=== PATIENT | female | born 1990 | race Caucasian/White ===

== ENCOUNTER 2019-10-18 18:29 | Emergency (ER) | payer SELFPAY ==
[~2019-10-18] VITALS: Ht 167.6 cm; Wt 81.8 kg
[2019-10-18 22:23] LABS: BASO # 0.1 (0.0-0.2); BASO % 0.8 % (0.0-2.0); EOS # 0.1 (0.0-0.7); EOS % 1.1 % (0-4.0); GRAN # 3.4 (1.4-6.5); GRAN % 48.5 % (42.2-75.2); HEMATOCRIT 45.5 % (37.0-47.0); HEMOGLOBIN 14.6 g/dl (12.5-16.0); LYMPH % 41.9 % (20.0-51.0); MEAN CELL VOLUME 91 fl (80.0-100.0); MEAN CORPUSCULAR HEMOGLOBIN 29 pg (27.0-31.0); MEAN CORPUSCULAR HGB CONC 32 g/dl (33.0-37.0); MEAN PLATELET VOLUME 11.2 fl (7.4-10.4); MONO # 0.5 (0.1-0.6); MONO % 7.6 % (1.7-9.3); PLATELET COUNT 199 K/mm3 (130-400); RED BLOOD COUNT 4.99 M/mm3 (4.10-5.30); REDCELL DISTRIBUTION WIDTH-CV 13.3 % (11.5-14.5)
[2019-10-18 22:39] LABS: ACETAMINOPHEN < 10 ug/mL (10-30); ALANINE AMINOTRANSFERASE 110 U/L (9-52); ALBUMIN 4.5 gm/dL (3.5-5.0); ALCOHOL(ethanol),MEDICAL < 10 mg/dL; ALKALINE PHOSPHATASE 121 U/L (50-136); ANION GAP 11 mmol/L (7-16); AST,SGOT 67 U/L (15-37); BILIRUBIN,TOTAL 0.8 mg/dL (0.0-1.0); BLOOD UREA NITROGEN 17 mg/dL (7-17); CALCIUM 9.1 mg/dL (8.4-10.2); CARBON DIOXIDE 22 mmol/L (22-30); CHLORIDE 108 mmol/L (98-107); CREATININE, serum 0.87 (0.52-1.25); GLUCOSE 85 mg/dL (74-106); POTASSIUM 3.1 mmol/L (3.4-5.0); SALICYLATE < 1.0 mg/dL; SODIUM 141 mmol/L (137-145); TOTAL PROTEIN 8.2 gm/dL (6.4-8.2)
[2019-10-18 22:42] LABS: COLLECTION METHOD CLEAN CATCH
[2019-10-18 22:54] LABS: MUCOUS Present /lpf; PH 5 (5-8); SQUAMOUS EPITHELIAL 0-2 /hpf; URINE APPEARANCE Hazy; URINE BACTERIA None Seen /hpf; URINE BILIRUBIN Negative (NEGATIVE); URINE BLOOD Negative (NEGATIVE); URINE COLOR Amber; URINE GLUCOSE Negative (NEGATIVE); URINE KETONE Trace (NEGATIVE); URINE LEUKOCYTE ESTERASE 1+ (NEGATIVE); URINE NITRATE Negative (NEGATIVE); URINE PROTEIN(semi-quant) 2+ (NEGATIVE)
[2019-10-18 22:58] LABS: TRICYCLIC ANTIDEPRESS URINE NEGATIVE
[2019-10-19 07:19] VITALS: BP 126/71; PULSE 71; TEMP 98
== END 2019-10-19 17:20 ==
LOC: COL.ER 18:29
PROVIDERS: Nurse Practitioner
DX: F20.9 Schizophrenia, unspecified (principal); F31.9 Bipolar disorder, unspecified; F17.290 Nicotine dependence, other tobacco product, uncomplicated
CPT/HCPCS: J1200; J1630; J2060

== ENCOUNTER 2020-01-20 21:09 | Inpatient (IN) | payer SELFPAY ==
[~2020-01-20] VITALS: Ht 162.6 cm; Wt 90.8 kg
[2020-01-20 21:29] LABS: BASO % 0.4 % (0.0-2.0); EOS # 0.1 (0.0-0.7); EOS % 1.4 % (0-4.0); GRAN # 3.6 (1.4-6.5); GRAN % 50.4 % (42.2-75.2); HEMATOCRIT 41.2 % (37.0-47.0); HEMOGLOBIN 14.2 g/dl (12.5-16.0); LYMPH # 2.9 (1.2-3.4); LYMPH % 40.8 % (20.0-51.0); MEAN CELL VOLUME 90 fl (80.0-100.0); MEAN CORPUSCULAR HEMOGLOBIN 31 pg (27.0-31.0); MEAN CORPUSCULAR HGB CONC 35 g/dl (33.0-37.0); MEAN PLATELET VOLUME 10.7 fl (7.4-10.4); MONO # 0.5 (0.1-0.6); MONO % 6.9 % (1.7-9.3); PLATELET COUNT 210 K/mm3 (130-400); RED BLOOD COUNT 4.58 M/mm3 (4.10-5.30); REDCELL DISTRIBUTION WIDTH-CV 13.3 % (11.5-14.5)
[2020-01-20 21:41] LABS: ALANINE AMINOTRANSFERASE 15 U/L (4-34); ALBUMIN 4.5 gm/dL (3.5-5.0); ALKALINE PHOSPHATASE 93 U/L (50-136); ANION GAP 10 mmol/L (7-16); AST,SGOT 22 U/L (15-37); BLOOD UREA NITROGEN 8 mg/dL (7-17); CALCIUM 9.4 mg/dL (8.4-10.2); CARBON DIOXIDE 23 mmol/L (22-30); CHLORIDE 105 mmol/L (98-107); CREATININE, serum 0.88 (0.52-1.25); GLUCOSE 112 mg/dL (74-106); SODIUM 139 mmol/L (137-145)
[2020-01-20 21:42] LABS: ACETAMINOPHEN < 10 ug/mL (10-30); ALCOHOL(ethanol),MEDICAL < 10 mg/dL; POTASSIUM 2.9 mmol/L (3.4-5.0); SALICYLATE < 1.0 mg/dL
[2020-01-20 22:11] LABS: MAGNESIUM 1.8 mg/dL (1.6-2.3)
[2020-01-20 22:24] LABS: TROPONIN-I < 0.012 ng/mL (0.000-0.035)
[2020-01-20 22:45] LABS: COLLECTION METHOD CLEAN CATCH
[2020-01-20 22:54] LABS: MUCOUS Present /lpf; PH 5 (5-8); URINE APPEARANCE Cloudy; URINE BACTERIA None Seen /hpf; URINE BILIRUBIN Negative (NEGATIVE); URINE BLOOD Negative (NEGATIVE); URINE COLOR Amber; URINE GLUCOSE Negative (NEGATIVE); URINE KETONE Negative (NEGATIVE); URINE LEUKOCYTE ESTERASE 1+ (NEGATIVE); URINE NITRATE Negative (NEGATIVE); URINE PROTEIN(semi-quant) 2+ (NEGATIVE); URINE UROBILINOGEN Negative (NEGATIVE)
[2020-01-20 23:02] LABS: TRICYCLIC ANTIDEPRESS URINE POSITIVE
[2020-01-21] VITALS (63 sets, daily range): BP systolic 108–133; BP diastolic 67–88; PULSE 72–125; TEMP 97–98; O2SAT 68–100
--- NOTE | 2020-01-21 00:15 | NUR ---
RECEIVED REPORT FROM KARLA WHELAN IN ER. AWAITING ARRIVAL OF PT TO ICU 5.
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
[2020-01-21] MEDS ORDERED: SEROQUEL50 MG PO (02:41)
[2020-01-21] MEDS ORDERED: ATIVAN 1MG T1 MG/TAB PO (02:43)
[2020-01-21] MEDS ORDERED: SEROQUEL 1100 MG/TAB PO (02:44)
[2020-01-21] MEDS ORDERED: ADDERALL20 MG PO (02:44)
[2020-01-21 07:36] LABS: BASO % 0.4 % (0.0-2.0); EOS # 0.1 (0.0-0.7); EOS % 1.2 % (0-4.0); GRAN # 2.9 (1.4-6.5); GRAN % 51.8 % (42.2-75.2); HEMATOCRIT 37.1 % (37.0-47.0); HEMOGLOBIN 12.5 g/dl (12.5-16.0); LYMPH # 2.2 (1.2-3.4); LYMPH % 38.7 % (20.0-51.0); MEAN CELL VOLUME 93 fl (80.0-100.0); MEAN CORPUSCULAR HEMOGLOBIN 31 pg (27.0-31.0); MEAN CORPUSCULAR HGB CONC 34 g/dl (33.0-37.0); MEAN PLATELET VOLUME 10.7 fl (7.4-10.4); MONO # 0.4 (0.1-0.6); MONO % 7.7 % (1.7-9.3); PLATELET COUNT 208 K/mm3 (130-400); RED BLOOD COUNT 3.99 M/mm3 (4.10-5.30); REDCELL DISTRIBUTION WIDTH-CV 13.5 % (11.5-14.5)
[2020-01-21 07:41] LABS: ALBUMIN 3.8 gm/dL (3.5-5.0); BILIRUBIN,TOTAL 0.8 mg/dL (0.0-1.0); CALCIUM 8.8 mg/dL (8.4-10.2); CREATININE, serum 0.82 (0.52-1.25); MAGNESIUM 2.2 mg/dL (1.6-2.3); POTASSIUM 4.3 mmol/L (3.4-5.0); TOTAL PROTEIN 6.9 gm/dL (6.4-8.2)
--- NOTE | 2020-01-21 08:49 | NUR ---
PT RMAINS AT LVL III, A/O BUT RAMBLES INTTERMITANLY, REPORTING THAT SHE IS SPEAKING TO HER LITTLE SISTER THAT NEEDS TO EAT OR HER BG WILL GET LOW, PACING AROUND THE ROOM AND REFUSING TO KEEP IV, TELE LEADS, BP CUFF, OR PULSE OX ON. PT PULLED OUT RIGHT AC PERIFERAL IV. ATTEMPTED TO PLACE PSYCH CONSULT BUT DR. VELAZQUEZ, IS NOT PAPER STEAMER, RECIEVED NUMBER FOR TELE SCREENER AT [facility], SO WILL PLACE CALL. WILL CONTINUE TO MONITOR PT STATUS AND UPDATE PROVIDERS NEEDED. PT UPSET THAT SHE IS ON A CLEAR LIQUID DIET, RN EXPLAINED MD'S CONCERNS ABOUT POSSIBLE SZ ACTIVITIY AND POSSIBLE ASPIRATION, PT STILL WANTS TO EAT.
--- NOTE | 2020-01-21 10:17 | NUR ---
[facility], Therapist Aida Edgar, called to conduct pt health screening and placement. Since pt not yet medically cleared, she stated she was unable to conduct tele-health screen at this time. Staff is instructed to call again once pt is medically cleared. Crisis Line: [phone] or Psych MD client professional.
--- NOTE | 2020-01-21 10:53 | NUR ---
POISON CONTROLLED CALLED AND AFTER ASSESSING LABS, VS, QTC'S, AND MEDICATION S/S WINDOW, REP CHILDERS STATED PER POISON CONTROL STANDPOINT PT CAN BE MEDICALLY CLEARED. DR. WILLS WAS CALLED AND UPDATED RE; POISON CONTROL RECOMMENDATION ON MEDICAL CLEARANCE. DR. WILLS AGREED WITH MEDICAL CLEARANCE, AND REPORTS HE WILL UPDATE HIS NOTED TO REFLECT CLEARANCE. PT MOTHER EMILY CALLED AND WAS UPDATED ON PT STATUS.
--- NOTE | 2020-01-21 13:00 | NUR ---
Pt currently on ZOOM call with Therapist Aida Edgar for Health Screening.
[2020-01-21] MEDS ORDERED: OMNICEF 300MG300 MG PO (13:53)
--- NOTE | 2020-01-21 14:35 | NUR ---
Pt being [facility], Dr. Sanchez came to bedside to reassess pt prior to d/c. IV removed, d/c paperwork explained and pt verbalized understanding. VSS, pt denies any pain. Pt ready for tx when ride becomes available.
--- NOTE | 2020-01-21 15:06 | NUR ---
PT LEFT UNIT WITH [facility], IV REMOVED.
== END 2020-01-21 15:06 | DRG 918 ==
LOC: COL.ER 21:09 → ICU 23:02
PROVIDERS: Emergency Medicine; Nurse Practitioner Family; ADMIT Family Medicine
DX: T43.592A Poisoning by other antipsychotics and neuroleptics, intentional self-harm, initial encounter (principal); R45.851 Suicidal ideations; N39.0 Urinary tract infection, site not specified; F90.9 Attention-deficit hyperactivity disorder, unspecified type; F20.9 Schizophrenia, unspecified; F31.9 Bipolar disorder, unspecified; E87.6 Hypokalemia
CPT/HCPCS: 99239; A4216; J0696; J1650; J3475; J3480

== ENCOUNTER 2020-03-06 15:58 | Emergency (ER) | payer SELFPAY ==
[~2020-03-06] VITALS: Ht 162.6 cm; Wt 90.9 kg
[~2020-03-06 15:58] MED LIST: ADDERALL20 MG PO; ATIVAN 1MG T1 MG/TAB PO; OMNICEF 300MG300 MG PO; SEROQUEL 1100 MG/TAB PO; SEROQUEL50 MG PO
[2020-03-06 16:06] VITALS: TEMP 97.9
[2020-03-06 16:44] LABS: BASO # 0.1 (0.0-0.2); BASO % 0.8 % (0.0-2.0); EOS # 0.4 (0.0-0.7); EOS % 4.7 % (0-4.0); GRAN # 3.3 (1.4-6.5); GRAN % 43.4 % (42.2-75.2); HEMATOCRIT 43.8 % (37.0-47.0); HEMOGLOBIN 15.2 g/dl (12.5-16.0); LYMPH # 3.2 (1.2-3.4); LYMPH % 42.1 % (20.0-51.0); MEAN CELL VOLUME 88 fl (80.0-100.0); MEAN CORPUSCULAR HEMOGLOBIN 31 pg (27.0-31.0); MEAN CORPUSCULAR HGB CONC 35 g/dl (33.0-37.0); MEAN PLATELET VOLUME 11.3 fl (7.4-10.4); MONO # 0.7 (0.1-0.6); MONO % 8.9 % (1.7-9.3); PLATELET COUNT 223 K/mm3 (130-400); RED BLOOD COUNT 4.97 M/mm3 (4.10-5.30); REDCELL DISTRIBUTION WIDTH-CV 12.2 % (11.5-14.5)
[2020-03-06 16:56] LABS: C-REACTIVE PROTEIN 0.6 mg/dL (0.0-0.9); CALCIUM 8.9 mg/dL (8.4-10.2); CREATININE, serum 0.61 (0.52-1.25); POTASSIUM 3.5 mmol/L (3.4-5.0)
[2020-03-06 17:10] LABS: ERYTHROCYTE SEDIMENTATION RATE 6 mm/hr (0-20)
[2020-03-06 17:17] LABS: COLLECTION METHOD CLEAN CATCH
[2020-03-06 17:24] LABS: MUCOUS Present /lpf; PH 6 (5-8); SQUAMOUS EPITHELIAL 0-2 /hpf; URINE APPEARANCE Clear; URINE BACTERIA None Seen /hpf; URINE BILIRUBIN Negative (NEGATIVE); URINE BLOOD 1+ (NEGATIVE); URINE COLOR Yellow; URINE GLUCOSE Negative (NEGATIVE); URINE KETONE Negative (NEGATIVE); URINE LEUKOCYTE ESTERASE Negative (NEGATIVE); URINE NITRATE Negative (NEGATIVE); URINE PROTEIN(semi-quant) Negative (NEGATIVE); URINE RBC 0-2 /hpf; URINE UROBILINOGEN Negative (NEGATIVE)
[2020-03-06 17:24] LABS: TSH w REFLEX 0.269 uIU/mL (0.465-4.680)
[2020-03-06] MEDS ORDERED: NORCO 325 MG-51 TAB PO (17:42)
[2020-03-06 17:47] VITALS: BP 124/90; PULSE 88
== END 2020-03-06 17:56 | disposition home or self-care (01) ==
LOC: COL.ER 15:58
PROVIDERS: Physician Assistant
DX: M79.89 Other specified soft tissue disorders (principal); F31.9 Bipolar disorder, unspecified; F17.210 Nicotine dependence, cigarettes, uncomplicated; Z91.5 Personal history of self-harm
CPT/HCPCS: J1885

== ENCOUNTER 2020-10-30 09:59 | Outpatient (CLI) | payer SELFPAY ==
[~2020-10-30 09:59] MED LIST changes: +NORCO 325 MG-51 TAB PO
--- NOTE | 2020-10-30 10:00 | NUR ---
Patient ambulatory onto unit with mother at side with report of pelvic pressure and leaking of fluid. Patient has not had any care. "I just found out I was ". Patient reports good movement, denies vaginal bleeding. Patient states she just had a baby a year ago. Denies any prior complications. EFMs on. VS taken. to bedside to evaluate patient. Bedside ultrasound performed by provider. Speculum exam performed. AmniTrace negative. Chlamydia/Gonorrhea swabs completed. SVE closed per provider. Plan of care discussed with patient and mother. Assessment completed by Ngozi ACOSTA. Will continue to monitor.
[2020-10-30 10:46] LABS: COLLECTION METHOD CATHETER
--- NOTE | 2020-10-30 10:50 | NUR ---
US at bedside.
[2020-10-30 10:53] LABS: HEMOGLOBIN 11.4 g/dl (12.5-16.0); MEAN CELL VOLUME 94 fl (80.0-100.0); MEAN CORPUSCULAR HEMOGLOBIN 31 pg (27.0-31.0); MEAN CORPUSCULAR HGB CONC 33 g/dl (33.0-37.0); MEAN PLATELET VOLUME 11.1 fl (7.4-10.4); PLATELET COUNT 254 K/mm3 (130-400); RED BLOOD COUNT 3.68 M/mm3 (4.10-5.30); REDCELL DISTRIBUTION WIDTH-CV 14.3 % (11.5-14.5)
[2020-10-30 10:55] LABS: HEMATOCRIT 34.5 % (37.0-47.0)
[2020-10-30] MEDS ORDERED: PRENATAL MVI (10:56)
[2020-10-30 11:00] VITALS: BP 127/75; PULSE 110; TEMP 98.5
[2020-10-30 11:21] LABS: MUCOUS Present /lpf; PH 6 (5-8); URINE APPEARANCE Cloudy; URINE BACTERIA Rare /hpf; URINE BILIRUBIN Negative (NEGATIVE); URINE BLOOD Negative (NEGATIVE); URINE COLOR Yellow; URINE GLUCOSE Negative (NEGATIVE); URINE KETONE Negative (NEGATIVE); URINE LEUKOCYTE ESTERASE Trace (NEGATIVE); URINE NITRATE Negative (NEGATIVE); URINE PROTEIN(semi-quant) Negative (NEGATIVE); URINE RBC 0-2 /hpf; URINE UROBILINOGEN Negative (NEGATIVE)
[2020-10-30 11:25] LABS: TRICYCLIC ANTIDEPRESS URINE NEGATIVE
[2020-10-30 11:32] LABS: HIV 1/2 Antibodies Non-Reactive; HIV-1p24 Antigen Non-Reactive
--- NOTE | 2020-10-30 11:44 | NUR ---
RN at bedside. EFM replaced. FHR tracing intermittently due to maternal habitus and gest age. RN remainst at bedside adjusting EFM.
[2020-10-30 12:00] VITALS: BP 120/66; PULSE 95
[2020-10-30 12:09] VITALS: BP 133/74; PULSE 100
--- NOTE | 2020-10-30 12:25 | NUR ---
Discharge instructions reviewed with patient and family who verbalize understanding. Ambulatory off unit to private vehicle.
[2020-10-30 12:33] LABS: BAND 15 % (0-10); EOSINOPHIL 2 % (0-4); LYMPHOCYTE 17 % (20.0-51.0); NEUTROPHILS 59 % (42.0-75.2); PLATELET ESTIMATE NORMAL (NORMAL)
[2020-10-30 22:29] LABS: HEPATITIS B SURFACE ANTIGEN Negative (Negative)
== END 2020-10-30 12:25 | disposition home or self-care (01) ==
LOC: LDRO 09:59
PROVIDERS: Obstetrics & Gynecology
DX: O99.891 Other specified diseases and conditions complicating pregnancy (principal); R10.2 Pelvic and perineal pain; Z3A.30 30 weeks gestation of pregnancy

== ENCOUNTER 2020-11-11 15:50 | Emergency (ER) | payer SELFPAY ==
[~2020-11-11] VITALS: Ht 160 cm; Wt 107.3 kg
[~2020-11-11 15:50] MED LIST changes: +PRENATAL MVI
[2020-11-11 15:58] VITALS: TEMP 96.9
[2020-11-11 18:45] VITALS: BP 151/88; PULSE 106
[2020-11-12 01:36] LABS: COLLECTION METHOD CLEAN CATCH
[2020-11-12 01:38] LABS: URINE COLOR Amber
[2020-11-12 01:39] LABS: PH 6 (5-8); URINE APPEARANCE Hazy; URINE BILIRUBIN Negative (NEGATIVE); URINE BLOOD Negative (NEGATIVE); URINE GLUCOSE Negative (NEGATIVE); URINE KETONE Negative (NEGATIVE); URINE LEUKOCYTE ESTERASE Negative (NEGATIVE); URINE NITRATE Negative (NEGATIVE); URINE PROTEIN(semi-quant) 1+ (NEGATIVE); URINE RBC None Seen /hpf; URINE UROBILINOGEN Negative (NEGATIVE)
== END 2020-11-11 18:58 | disposition other institution (70) ==
LOC: COL.ER 15:50
PROVIDERS: Physician Assistant
DX: O12.02 Gestational edema, second trimester (principal); R22.33 Localized swelling, mass and lump, upper limb, bilateral; Z3A.32 32 weeks gestation of pregnancy; Z87.891 Personal history of nicotine dependence
CPT/HCPCS: J1200; J7030

== ENCOUNTER 2020-12-01 04:50 | Outpatient (CLI) | payer MEDICAID ==
[2020-12-01] VITALS (8 sets, daily range): BP systolic 113–151; BP diastolic 57–96; PULSE 86–102; TEMP 98.2–98.4
[~2020-12-01] VITALS: Ht 162.6 cm; Wt 104.5 kg
--- NOTE | 2020-12-01 04:55 | NUR ---
G6L5 with no care arrives to unit by wheelchair with complaint of vaginal bleeding and leakage of fluid. Pt states she is around 35 weeks based off an US that was done on our unit a few weeks ago. Pt reports that she moved recently and didn't know she was for awhile and can't afford care. Pt reports feeling baby move, denies contractions at this time. Pt changed into gown, oriented to room, bed in low and locked position, call light within reach. US and toco explained and applied. Vital signs obtained. Admission assessment started. SVE performed 0-10/22/high, unable to palpate presenting part, unable to determine rupture of membranes off SVE. Upon examination dried blood noted down both of patients legs. Patient had also coughed while sitting on bed and lemon sized blood clot on chux pad. Pt reports normal, spontaneous vaginal deliveries x 5 with no complications.
--- NOTE | 2020-12-01 06:00 | NUR ---
Dr. Abebe at bedside to obtain history and perform BSUS. Transverse position suspected, will need formal US. Discussing plan of care to transfer to [facility] for higher level of care due to unknown gestation and vaginal bleeding.
[2020-12-01 06:12] LABS: COLLECTION METHOD CATHETER
[2020-12-01 06:14] LABS: BASO # 0.1 (0.0-0.2); BASO % 0.4 % (0.0-2.0); EOS # 0.6 (0.0-0.7); EOS % 4.2 % (0-4.0); GRAN # 8.8 (1.4-6.5); GRAN % 63.2 % (42.2-75.2); HEMOGLOBIN 11.2 g/dl (12.5-16.0); LYMPH # 3.2 (1.2-3.4); LYMPH % 23.3 % (20.0-51.0); MEAN CELL VOLUME 92 fl (80.0-100.0); MEAN CORPUSCULAR HEMOGLOBIN 32 pg (27.0-31.0); MEAN CORPUSCULAR HGB CONC 34 g/dl (33.0-37.0); MEAN PLATELET VOLUME 11.4 fl (7.4-10.4); MONO # 1.1 (0.1-0.6); PLATELET COUNT 328 K/mm3 (130-400); RED BLOOD COUNT 3.55 M/mm3 (4.10-5.30); REDCELL DISTRIBUTION WIDTH-CV 14.6 % (11.5-14.5)
[2020-12-01 06:20] LABS: HEMATOCRIT 32.8 % (37.0-47.0)
[2020-12-01 06:26] LABS: MUCOUS Present /lpf; PH 7 (5-8); SQUAMOUS EPITHELIAL 0-2 /hpf; URINE APPEARANCE Clear; URINE BACTERIA None Seen /hpf; URINE BILIRUBIN Negative (NEGATIVE); URINE BLOOD Negative (NEGATIVE); URINE COLOR Yellow; URINE GLUCOSE Negative (NEGATIVE); URINE KETONE Negative (NEGATIVE); URINE LEUKOCYTE ESTERASE Negative (NEGATIVE); URINE NITRATE Negative (NEGATIVE); URINE PROTEIN(semi-quant) Negative (NEGATIVE); URINE RBC 0-2 /hpf; URINE UROBILINOGEN Negative (NEGATIVE); URINE WBC 0-2 /hpf
[2020-12-01 06:30] LABS: ALBUMIN 3.2 gm/dL (3.5-5.0); BILIRUBIN,TOTAL 0.3 mg/dL (0.0-1.0); CALCIUM 8.8 mg/dL (8.4-10.2); CREATININE, serum 0.52 (0.52-1.25); TOTAL PROTEIN 6.5 gm/dL (6.4-8.2)
[2020-12-01 06:50] LABS: TRICYCLIC ANTIDEPRESS URINE NEGATIVE
--- NOTE | 2020-12-01 06:56 | NUR ---
0693-Recieved report from BetoRN 0625-Spec exam by Dr. Abebe. No pooling of fluid or blood in vagina per MD. SVE by MD /. BLE cleansed and socks to feet. Dr. Abebe updated patient on plan of care. Awaiting transport. Significant other at bedside.
--- NOTE | 2020-12-01 07:14 | NUR ---
0714-Patient off EFM. Transfers self to cart with [facility]. Report given to transport. 0724-Called report to Nurse Amy Parham at [facility] in [place].
== END 2020-12-01 07:14 | disposition short-term general hospital (02) ==
LOC: LDRO 04:50 → LDR 04:55 → LDRO 07:14
PROVIDERS: Student in an Organized Health Care Education/Training Program
DX: O26.853 Spotting complicating pregnancy, third trimester (principal); Z3A.35 35 weeks gestation of pregnancy
CPT/HCPCS: OP; J0702

== ENCOUNTER 2021-01-03 15:23 | Emergency (ER) | payer MEDICAID ==
[~2021-01-03] VITALS: Ht 162.6 cm; Wt 86.4 kg
[2021-01-03 15:47] LABS: BASO % 0.5 % (0.0-2.0); EOS # 0.1 (0.0-0.7); EOS % 1.3 % (0-4.0); GRAN # 5.5 (1.4-6.5); GRAN % 62.8 % (42.2-75.2); HEMATOCRIT 44.1 % (37.0-47.0); HEMOGLOBIN 13.8 g/dl (12.5-16.0); LYMPH # 2.5 (1.2-3.4); LYMPH % 28.2 % (20.0-51.0); MEAN CELL VOLUME 91 fl (80.0-100.0); MEAN CORPUSCULAR HEMOGLOBIN 29 pg (27.0-31.0); MEAN CORPUSCULAR HGB CONC 31 g/dl (33.0-37.0); MEAN PLATELET VOLUME 10.5 fl (7.4-10.4); MONO # 0.6 (0.1-0.6); PLATELET COUNT 309 K/mm3 (130-400); RED BLOOD COUNT 4.83 M/mm3 (4.10-5.30)
[2021-01-03 15:55] LABS: ALANINE AMINOTRANSFERASE 125 U/L (4-34); ALBUMIN 4.7 gm/dL (3.5-5.0); ALKALINE PHOSPHATASE 124 U/L (50-136); ANION GAP 14 mmol/L (7-16); AST,SGOT 101 U/L (15-37); BILIRUBIN,TOTAL 0.7 mg/dL (0.0-1.0); BLOOD UREA NITROGEN 23 mg/dL (7-17); CALCIUM 9.2 mg/dL (8.4-10.2); CARBON DIOXIDE 21 mmol/L (22-30); CHLORIDE 106 mmol/L (98-107); GLUCOSE 83 mg/dL (74-106); POTASSIUM 3.4 mmol/L (3.4-5.0); SODIUM 141 mmol/L (137-145); TOTAL PROTEIN 9.5 gm/dL (6.4-8.2)
[2021-01-03 16:05] LABS: ACETAMINOPHEN < 10 ug/mL (10-30); ALCOHOL(ethanol),MEDICAL < 10 mg/dL; SALICYLATE < 1.0 mg/dL
--- NOTE | 2021-01-03 16:49 | NUR ---
SW responded to consult. The patient was found down and was responsive, but refused to speak. She has not been speaking to staff while here and has a child at home. GARY met with the patient and her fiance, Lucio Ann (ph#[phone]). The patient did not respond to SW's questions. Lucio reports that the patient lives with him and their two children. They have a 1 1/2 year-old daughter and just had a baby boy last month. Lucio reports that their baby boy came early and that he is still in the NICU at [facility]. He reports that he has been home at with the patient and their 1 1/2 year-old. They also receive support from the patient's mother, Zina Sen. He reports that their daughter is with the patient's mother now. Lucio reports that the patient has a history of mental health and has followed with [facility] in the past. She is not seeing anyone for her mental health at this time. He reports that she has also had continued bleeding since having the baby and that they have been under a lot of stress with their baby boy. He reports that [facility] has talked about having to possibly transfer their baby to a different hospital. Lucio asked GARY what would happen next. GARY informed him that most likely [facility] would come and screen the patient once she is medically cleared. Lucio verbalized understanding and thought it would be a good idea for them to screen her. GARY updated the patient's RN.
[2021-01-04 08:58] LABS: COLLECTION METHOD CLEAN CATCH
[2021-01-04 09:20] LABS: MUCOUS Present /lpf; PH 6 (5-8); URINE APPEARANCE Hazy; URINE BACTERIA None Seen /hpf; URINE BILIRUBIN Negative (NEGATIVE); URINE BLOOD 3+ (NEGATIVE); URINE COLOR Amber; URINE GLUCOSE Negative (NEGATIVE); URINE KETONE Trace (NEGATIVE); URINE LEUKOCYTE ESTERASE Negative (NEGATIVE); URINE NITRATE Negative (NEGATIVE); URINE PROTEIN(semi-quant) 2+ (NEGATIVE); URINE RBC >50 /hpf
[2021-01-04 09:22] LABS: TRICYCLIC ANTIDEPRESS URINE NEGATIVE
[2021-01-06 10:27] LABS: BASO % 0.6 % (0.0-2.0); EOS # 0.1 (0.0-0.7); EOS % 1.7 % (0-4.0); GRAN # 4.7 (1.4-6.5); GRAN % 64.8 % (42.2-75.2); HEMATOCRIT 37.8 % (37.0-47.0); HEMOGLOBIN 11.9 g/dl (12.5-16.0); LYMPH # 1.7 (1.2-3.4); LYMPH % 23.9 % (20.0-51.0); MEAN CELL VOLUME 92 fl (80.0-100.0); MEAN CORPUSCULAR HEMOGLOBIN 29 pg (27.0-31.0); MEAN CORPUSCULAR HGB CONC 32 g/dl (33.0-37.0); MEAN PLATELET VOLUME 10.8 fl (7.4-10.4); MONO # 0.6 (0.1-0.6); MONO % 8.7 % (1.7-9.3); PLATELET COUNT 270 K/mm3 (130-400); RED BLOOD COUNT 4.11 M/mm3 (4.10-5.30); REDCELL DISTRIBUTION WIDTH-CV 13.8 % (11.5-14.5)
[2021-01-06 10:31] LABS: BILIRUBIN,TOTAL 0.1 mg/dL (0.0-1.0); CALCIUM 8.9 mg/dL (8.4-10.2); CREATININE, serum 0.87 (0.52-1.25); TOTAL PROTEIN 7.8 gm/dL (6.4-8.2)
[2021-01-06 13:18] VITALS: BP 129/81; PULSE 78; TEMP 97.6
== END 2021-01-06 13:15 ==
LOC: COL.ER 15:23
PROVIDERS: Family Medicine; Physician Assistant
DX: F53.0 Postpartum depression (principal); O99.215 Obesity complicating the puerperium
CPT/HCPCS: J7030

== ENCOUNTER 2021-06-04 14:36 | Emergency (ER) | payer MEDICAID ==
[~2021-06-04] VITALS: Ht 162.6 cm; Wt 104.5 kg
[2021-06-04 15:04] VITALS: BP 121/80; PULSE 121; TEMP 98.1
== END 2021-06-04 16:00 | disposition home or self-care (01) ==
LOC: COL.ER 14:36
DX: R68.84 Jaw pain (principal); F31.9 Bipolar disorder, unspecified; Z79.899 Other long term (current) drug therapy

== ENCOUNTER 2021-11-11 14:59 | Emergency (ER) | payer MEDICAID ==
[~2021-11-11] VITALS: Ht 165.1 cm; Wt 99.5 kg
[2021-11-11 15:07] VITALS: TEMP 98.6
[2021-11-11 15:55] VITALS: BP 140/60; PULSE 86
== END 2021-11-11 16:00 | disposition home or self-care (01) ==
LOC: COL.ER 14:59
DX: F32.A Depression, unspecified (principal); F17.290 Nicotine dependence, other tobacco product, uncomplicated; Z76.0 Encounter for issue of repeat prescription

== ENCOUNTER 2022-10-27 12:32 | Emergency (ER) | payer MEDICAID ==
[~2022-10-27] VITALS: Ht 162.6 cm; Wt 91.0 kg
[2022-10-27 12:57] VITALS: TEMP 98.1
[2022-10-27] MEDS ORDERED: ANUSOL-HC SUPPO25 MG RC (13:25)
[2022-10-27 13:35] LABS: BASO % 0.4 % (0.0-2.0); EOS # 0.3 K/mm3 (0.0-0.7); EOS % 2.9 % (0.0-4.0); GRAN # 6.5 K/mm3 (1.4-6.5); GRAN % 68.5 % (42.2-75.2); HEMATOCRIT 43.9 % (37.0-47.0); HEMOGLOBIN 14.7 g/dl (12.5-16.0); LYMPH # 2.1 K/mm3 (1.2-3.4); LYMPH % 21.7 % (20.0-51.0); MEAN CELL VOLUME 88 fl (80.0-100.0); MEAN CORPUSCULAR HEMOGLOBIN 29 pg (27-31); MEAN CORPUSCULAR HGB CONC 34 g/dl (33.0-37.0); MEAN PLATELET VOLUME 11.4 fl (7.4-10.4); MONO # 0.6 K/mm3 (0.1-0.6); MONO % 6.2 % (1.7-9.3); PLATELET COUNT 251 K/mm3 (130-400); RED BLOOD COUNT 5.01 M/mm3 (4.10-5.30)
[2022-10-27 13:59] LABS: ALBUMIN 4.2 gm/dL (3.5-5.0); BILIRUBIN,TOTAL 0.3 mg/dL (0.2-1.2); CALCIUM 9.3 mg/dL (8.4-10.2); CREATININE, serum 0.79 mg/dL (0.57-1.11)
[2022-10-27 15:08] VITALS: BP 123/79; PULSE 76
== END 2022-10-27 15:14 | disposition home or self-care (01) ==
LOC: COL.ER 12:32
PROVIDERS: Personal Emergency Response Attendant
DX: K62.5 Hemorrhage of anus and rectum (principal); F17.200 Nicotine dependence, unspecified, uncomplicated; Z28.310 Unvaccinated for COVID-19

== ENCOUNTER → 2023-11-16 | Emergency (ER) | payer MEDICAID ==
[~2023-11-16] VITALS: Ht 162.6 cm; Wt 61.9 kg
[~2023-11-16] MED LIST changes: +AMOXICILLIN875 MG PO; +ANUSOL-HC SUPPO25 MG RC; +Acetaminophen 500 MG TAB PO ONE; +FLEXERIL 1010 MG/TAB PO; +Ibuprofen 400 MG TAB PO ONE; +LORazepam 0.5 MG TAB PO ONE; +Naloxone 0.4 MG/ML VIAL IV ONE; +ZOFRAN ODT4 MG PO
[2023-11-16 14:47] LABS: BASO % 0.5 % (0.0-2.0); EOS # 0.1 K/mm3 (0.0-0.7); EOS % 1.6 % (0.0-4.0); GRAN # 5.3 K/mm3 (1.4-6.5); HEMATOCRIT 42.6 % (37.0-47.0); LYMPH # 2.2 K/mm3 (1.2-3.4); LYMPH % 26.6 % (20.0-51.0); MEAN CELL VOLUME 91 fl (80.0-100.0); MEAN CORPUSCULAR HEMOGLOBIN 30 pg (27-31); MEAN CORPUSCULAR HGB CONC 33 g/dl (33.0-37.0); MEAN PLATELET VOLUME 10.8 fl (7.4-10.4); MONO # 0.7 K/mm3 (0.1-0.6); MONO % 8.1 % (1.7-9.3); PLATELET COUNT 252 K/mm3 (130-400); RED BLOOD COUNT 4.66 M/mm3 (4.10-5.30); REDCELL DISTRIBUTION WIDTH-CV 13.7 % (11.5-14.5)
[2023-11-16 15:09] LABS: ACETAMINOPHEN < 7.0 ug/mL (10-30); ALANINE AMINOTRANSFERASE 12 U/L (0-55); ALBUMIN 3.6 gm/dL (3.5-5.0); ALKALINE PHOSPHATASE 61 U/L (40-150); ANION GAP 8 mmol/L (7-16); AST,SGOT 17 U/L (5-34); BLOOD UREA NITROGEN 14 mg/dL (7-19); CALCIUM 9.6 mg/dL (8.4-10.2); CARBON DIOXIDE 23 mmol/L (22-29); CHLORIDE 107 mmol/L (98-107); CREATININE, serum 0.81 mg/dL (0.57-1.11); GLUCOSE 89 mg/dL (70-99); POTASSIUM 4.2 mmol/L (3.5-4.5); SODIUM 138 mmol/L (136-145); TOTAL PROTEIN 6.8 gm/dL (6.2-8.1)
[2023-11-16 15:12] LABS: ALCOHOL(ethanol),MEDICAL < 10 mg/dL (0-10); SALICYLATE < 5.0 mg/dL (15.0-30.0)
[2023-11-16 15:18] LABS: BILIRUBIN,TOTAL 0.3 mg/dL (0.2-1.2)
[2023-11-17 01:20] LABS: COLLECTION METHOD CLEAN CATCH
[2023-11-17 01:32] LABS: TRICYCLIC ANTIDEPRESS URINE NEGATIVE (NEGATIVE)
[2023-11-17 01:36] LABS: PH 5.5 (5.0-8.5); URINE APPEARANCE CLEAR (CLEAR/HAZY); URINE BLOOD NEGATIVE (NEGATIVE); URINE COLOR YELLOW (YELLOW); URINE GLUCOSE NEGATIVE (NEGATIVE); URINE KETONE NEGATIVE (NEGATIVE); URINE NITRATE NEGATIVE (NEGATIVE); URINE PROTEIN(semi-quant) NEGATIVE (NEGATIVE); URINE UROBILINOGEN 0.2 E.U/dL (0.2-1.0)
[2023-11-17 12:00] VITALS: TEMP 97.6
[2023-11-18 10:08] VITALS: BP 110/56; PULSE 91
== END ==
LOC: COL.ER 14:20
PROVIDERS: Personal Emergency Response Attendant
DX: T50.901A Poisoning by unspecified drugs, medicaments and biological substances, accidental (unintentional), initial encounter (principal)
CPT/HCPCS: G0463; J2310

== ENCOUNTER 2023-12-06 23:45 | Emergency (ER) | payer OTHER ==
[~2023-12-06] VITALS: Ht 162.6 cm; Wt 59.1 kg
[~2023-12-06 23:45] MED LIST changes: -Acetaminophen 500 MG TAB PO ONE; -Ibuprofen 400 MG TAB PO ONE; -LORazepam 0.5 MG TAB PO ONE; -Naloxone 0.4 MG/ML VIAL IV ONE
[2023-12-06 23:56] VITALS: TEMP 98.3
[2023-12-07] MEDS ORDERED: dexAMETHasone 10 MG/ML VIAL IV ONE (00:15)
[2023-12-07] MEDS ORDERED: cefTRIAXone 1 G in Water For Injection,Sterile 10 ML IV ONE (00:15)
[2023-12-07 00:21] LABS: BASO % 0.2 % (0.0-2.0); GRAN # 12.2 K/mm3 (1.4-6.5); GRAN % 88.9 % (42.2-75.2); HEMATOCRIT 37.7 % (37.0-47.0); HEMOGLOBIN 12.5 g/dl (12.5-16.0); LYMPH # 0.6 K/mm3 (1.2-3.4); LYMPH % 4.6 % (20.0-51.0); MEAN CELL VOLUME 93 fl (80.0-100.0); MEAN CORPUSCULAR HEMOGLOBIN 31 pg (27-31); MEAN CORPUSCULAR HGB CONC 33 g/dl (33.0-37.0); MEAN PLATELET VOLUME 10.6 fl (7.4-10.4); MONO # 0.8 K/mm3 (0.1-0.6); MONO % 5.9 % (1.7-9.3); PLATELET COUNT 238 K/mm3 (130-400); RED BLOOD COUNT 4.07 M/mm3 (4.10-5.30); REDCELL DISTRIBUTION WIDTH-CV 14.2 % (11.5-14.5)
[2023-12-07 00:44] LABS: ALBUMIN 3.8 gm/dL (3.5-5.0); BILIRUBIN,TOTAL 0.3 mg/dL (0.2-1.2); C-REACTIVE PROTEIN 0.34 mg/dL (0.00-0.50); CALCIUM 9.6 mg/dL (8.4-10.2); CREATININE, serum 0.76 mg/dL (0.57-1.11); POTASSIUM 3.7 mmol/L (3.5-4.5)
[2023-12-07 01:19] VITALS: BP 144/82
[2023-12-07] MEDS ORDERED: AMOXICILLIN 8751 TAB PO (01:45)
[2023-12-07] MEDS ORDERED: Ketorolac 30 MG/ML VIAL IV ONE (01:45)
[2023-12-07 01:58] VITALS: PULSE 72
== END 2023-12-07 01:59 ==
LOC: COL.ER 23:45
PROVIDERS: Emergency Medicine
DX: S00.572A Other superficial bite of oral cavity, initial encounter (principal); K14.0 Glossitis; W26.8XXA Contact with other sharp object(s), not elsewhere classified, initial encounter
CPT/HCPCS: J0696; J1100; J1885

== ENCOUNTER 2024-07-24 09:03 | Emergency (ER) | payer MEDICAID ==
[~2024-07-24] VITALS: Ht 165.1 cm; Wt 60.9 kg
[~2024-07-24 09:03] MED LIST changes: +AMOXICILLIN 8751 TAB PO
[2024-07-24] MEDS ORDERED: droPERidol 2.5 MG/ML 2 ML VIAL IM ONE (09:30)
[2024-07-24 10:01] LABS: BASO # 0.1 K/mm3 (0.0-0.2); BASO % 0.7 % (0.0-2.0); EOS % 0.6 % (0.0-4.0); GRAN # 4.5 K/mm3 (1.4-6.5); GRAN % 62.5 % (42.2-75.2); HEMATOCRIT 38.4 % (37.0-47.0); HEMOGLOBIN 13.3 g/dl (12.5-16.0); LYMPH % 27.5 % (20.0-51.0); MEAN CELL VOLUME 90 fl (80.0-100.0); MEAN CORPUSCULAR HEMOGLOBIN 31 pg (27-31); MEAN CORPUSCULAR HGB CONC 35 g/dl (33.0-37.0); MEAN PLATELET VOLUME 10.7 fl (7.4-10.4); MONO # 0.6 K/mm3 (0.1-0.6); MONO % 8.6 % (1.7-9.3); PLATELET COUNT 208 K/mm3 (130-400); RED BLOOD COUNT 4.26 M/mm3 (4.10-5.30); REDCELL DISTRIBUTION WIDTH-CV 13.3 % (11.5-14.5)
[2024-07-24 10:22] LABS: ALANINE AMINOTRANSFERASE 13 U/L (0-55); ALBUMIN 4.2 g/dL (3.5-5.0); ALKALINE PHOSPHATASE 59 U/L (40-150); ANION GAP 13 mmol/L (7-16); AST,SGOT 23 U/L (5-34); BILIRUBIN,TOTAL 0.6 mg/dL (0.2-1.2); BLOOD UREA NITROGEN 18 mg/dL (7-19); CALCIUM 9.6 mg/dL (8.4-10.2); CHLORIDE 107 mEq/L (98-107); CREATININE, serum 0.85 mg/dL (0.57-1.11); GLUCOSE 100 mg/dL (70-99); POTASSIUM 3.3 mEq/L (3.5-4.5); SODIUM 141 mEq/L (136-145); TOTAL PROTEIN 7.6 g/dl (6.2-8.1)
[2024-07-24 10:23] LABS: ALCOHOL(ethanol),MEDICAL < 10 mg/dL (0-10); SALICYLATE < 5.0 mg/dL (15.0-30.0)
[2024-07-24 11:26] LABS: COLLECTION METHOD CATHETER
[2024-07-24 11:34] LABS: URINE APPEARANCE CLOUDY (CLEAR/HAZY); URINE BLOOD NEGATIVE (NEGATIVE); URINE COLOR Dark Yellow (YELLOW); URINE GLUCOSE NEGATIVE (NEGATIVE); URINE KETONE 1+ (NEGATIVE); URINE NITRATE NEGATIVE (NEGATIVE); URINE PROTEIN(semi-quant) 1+ (NEGATIVE)
[2024-07-24 11:44] LABS: TRICYCLIC ANTIDEPRESS URINE NEGATIVE (NEGATIVE)
[2024-07-24 11:49] LABS: MUCOUS PRESENT (NOT PRESENT); URINE BACTERIA MODERATE /hpf (NONE SEEN); URINE CALCIUM OXALATE CRYSTAL PRESENT (NOT PRESENT); URINE RBC 0-2 /hpf (0-2)
[2024-07-24 13:16] VITALS: BP 124/68; PULSE 90; TEMP 97.8
== END 2024-07-24 13:20 | disposition home or self-care (01) ==
LOC: COL.ER 09:03
PROVIDERS: Emergency Medicine
DX: S10.91XA Abrasion of unspecified part of neck, initial encounter (principal); S40.212A Abrasion of left shoulder, initial encounter; F15.10 Other stimulant abuse, uncomplicated; Z86.59 Personal history of other mental and behavioral disorders; X58.XXXA Exposure to other specified factors, initial encounter
CPT/HCPCS: J1790; J3360